=== PATIENT | female | born 1940 ===

== ENCOUNTER 2018-01-08 11:30 | Inpatient (IN) | payer OTHER ==
[~2018-01-08] VITALS: Ht 154.9 cm; Wt 64.0 kg
[2018-01-08] MEDS ORDERED: ALPRAZOLAM2 M1 PO (13:04)
[2018-01-08] MEDS ORDERED: GABAPENTIN400 MG (13:04)
[2018-01-08] MEDS ORDERED: NEURONTIN800 MG PO (13:04)
[2018-01-08] MEDS ORDERED: ATORVASTATIN CA10 MG PO (13:05)
[2018-01-08] MEDS ORDERED: SYNTHROID150 MCG PO (13:05)
[2018-01-08] MEDS ORDERED: LOSARTAN-HCTZ1 EAC2 PO (13:06)
[2018-01-08] MEDS ORDERED: VASOFLEX FORTE1 EACH (13:06)
[2018-01-08] MEDS ORDERED: MAXIMUM D310000 UNIT PO (13:07)
[2018-01-08] MEDS ORDERED: ZANTAC150 M3 PO (13:07)
[2018-01-08] MEDS ORDERED: GLYCOTROL CAPS1 EACH PO (13:08)
[2018-01-23] MEDS ORDERED: INTEGRA PLUS C1 EACH PO (06:25)
[2018-01-23] MEDS ORDERED: DOLOGESIC 500-1 EACH PO (06:25)
[2018-01-23] MEDS ORDERED: XARELTO10 MG PO (06:25)
== END 2018-01-23 12:06 | DRG 470 ==
LOC: O/R 01-19 06:13 → SURH 01-19 06:13
PROVIDERS: Orthopaedic Surgery Sports Medicine
PROC: 0SRC0J9 Replacement of Right Knee Joint with Synthetic Substitute, Cemented, Open Approach (ICD-10-PCS; principal; 2018-01-19 15:00)
DX: M17.11 Unilateral primary osteoarthritis, right knee (principal)